=== PATIENT | female | born 1970 | race African-American/Black ===

== ENCOUNTER 2017-07-18 01:36 | Emergency (ER) | payer OTHER ==
[~2017-07-18] VITALS: Ht 167.6 cm; Wt 68.0 kg
[~2017-07-18 01:36] MED LIST: prozac; vicodin
[2017-07-18] MEDS ORDERED: SODIUM CHLORIDE 0.9% 1,000 ML IV SCH (03:33)
[2017-07-18] MEDS ORDERED: METHYLPREDNISOLONE SOD SUCC 125 MG/2 ML VIAL IV ONE (03:45)
[2017-07-18] MEDS ORDERED: FAMOTIDINE 20MG/2ML VIAL IV ONE (03:45)
[2017-07-18] MEDS ORDERED: DIPHENHYDRAMINE 50MG/ML VIAL IV ONE (03:45)
[2017-07-18 05:14] VITALS: BP 140/78
== END 2017-07-18 05:45 | disposition home or self-care (01) ==
LOC: ER 01:36
DX: T78.40XA Allergy, unspecified, initial encounter (principal); I10 Essential (primary) hypertension; K21.9 Gastro-esophageal reflux disease without esophagitis; Z86.73 Personal history of transient ischemic attack (TIA), and cerebral infarction without residual deficits
CPT/HCPCS: 81025; 96361; 96374; 96375; 99285; J2930; J3490; J7030; J1200

== ENCOUNTER 2019-12-04 00:41 | Emergency (ER) | payer OTHER ==
[~2019-12-04] VITALS: Ht 162.6 cm; Wt 92.0 kg
[2019-12-04] MEDS ORDERED: METHYLPREDNISOLONE SOD SUCC 40 MG/ML VIAL IV ONE (01:15)
[2019-12-04] MEDS ORDERED: FAMOTIDINE 20MG/2ML VIAL IV ONE (01:15)
[2019-12-04] MEDS ORDERED: DIPHENHYDRAMINE 50MG/ML VIAL IV ONE (01:15)
[2019-12-04] MEDS ORDERED: ONDANSETRON HCL 4MG/2ML INJ IV ONE (01:30)
[2019-12-04 04:50] VITALS: BP 150/79
== END 2019-12-04 05:09 | disposition home or self-care (01) ==
LOC: ER 00:41
DX: T78.1XXA Other adverse food reactions, not elsewhere classified, initial encounter (principal); Z91.018 Allergy to other foods; X58.XXXA Exposure to other specified factors, initial encounter
CPT/HCPCS: 93005; 96374; 96375; 99284; J1200; J2405; J2920; J3490

== ENCOUNTER 2021-07-06 20:30 | Emergency (ER) | payer MEDICAID, OTHER ==
[~2021-07-06] VITALS: Ht 165.1 cm; Wt 82.0 kg
[2021-07-06] MEDS ORDERED: METHYLPREDNISOLONE SOD SUCC 125 MG/2 ML VIAL IV STA (21:10)
[2021-07-06] MEDS ORDERED: SODIUM CHLORIDE 0.9% 1,000 ML IV ONE (21:15)
[2021-07-06] MEDS ORDERED: METHYLPREDNISOLONE SOD SUCC 125 MG/2 ML VIAL IV NR (22:30)
[2021-07-06] MEDS ORDERED: DIPH25CA83 PO (22:53)
[2021-07-06] MEDS ORDERED: P50 MT (22:53)
[2021-07-06] MEDS ORDERED: EPIN0.3P3 IM (22:53)
[2021-07-06 23:00] VITALS: BP 149/107
== END 2021-07-06 23:25 | disposition home or self-care (01) ==
LOC: ER 20:30
DX: T78.49XA Other allergy, initial encounter (principal); X58.XXXA Exposure to other specified factors, initial encounter; I10 Essential (primary) hypertension; Z79.899 Other long term (current) drug therapy
CPT/HCPCS: 93005; 96361; 96374; 99283; J2930; J7030; Z7610

== ENCOUNTER 2023-03-12 11:29 | Emergency (ER) | payer OTHER ==
[~2023-03-12] VITALS: Ht 165.1 cm; Wt 78.0 kg
[~2023-03-12 11:29] MED LIST changes: +DIPH25CA83 PO; +EPIN0.3P3 IM; +P50 MT
[2023-03-12 11:44] VITALS: BP 167/92; PULSE 70; RESP 18; TEMP 98.7; O2SAT 99
== END 2023-03-12 23:34 | disposition left against medical advice (07) ==
LOC: ER 11:29
DX: R06.02 Shortness of breath (principal); I10 Essential (primary) hypertension; Z91.018 Allergy to other foods; Z88.8 Allergy status to other drugs, medicaments and biological substances
CPT/HCPCS: 93005; 99283